=== PATIENT | female | born 1940 | race Two or more races ===

== ENCOUNTER 2025-02-19 16:30 | Emergency (ER) | payer OTHER ==
[~2025-02-19] VITALS: Ht 167.6 cm; Wt 68.0 kg
[2025-02-19] MEDS ORDERED: COZAAR50 MG PO (16:48)
[2025-02-19] MEDS ORDERED: NORVASC5 MG PO (16:48)
[2025-02-19] MEDS ORDERED: ROSUVASTATIN CA10 MG PO (16:49)
[2025-02-19] MEDS ORDERED: GLIMEPIRIDE3 MG PO (16:49)
[2025-02-19] MEDS ORDERED: TRIJARDY XR 101 EACH PO (16:51)
[2025-02-19] MEDS ORDERED: FAMOTIDINE/PF 20 MG/2 ML VIAL ONE (17:34)
[2025-02-19] MEDS ORDERED: levoFLOXacin IN DEXTROSE 5 % 500MG/100ML PIGGYBAG IV ONE ×2 (17:34→17:45)
[2025-02-19] MEDS ORDERED: FAMOtidine 10 MG/ML (4ML VIAL) IV ONE (17:45)
[2025-02-19 18:41] LABS: BASO % 0.9 % (0.1-1.2); EOS # 0.15 (0.04-0.54); EOS % 2.2 % (0.7-7.0); HEMATOCRIT 39.5 % (34.1-44.9); HEMOGLOBIN 13.2 g/dL (11.2-15.7); LYMPH # 1.28 (1.18-3.74); LYMPH % 18.9 % (19.3-53.1); MEAN CORPUSCULAR HEMOGLOBIN 29.8 pg (25.6-32.2); MONO # 0.72 (0.24-0.82); MONO % 10.6 % (4.7-12.5); NEUT # 4.52 (1.56-6.13); NEUT % 66.7 % (34.0-71.1); PLATELET COUNT 248 K/uL (163-369); RED BLOOD COUNT 4.43 M/uL (3.93-5.22); RED CELL DISTRIBUTION WIDTH 13.5 % (11.6-14.4)
[2025-02-19 18:45] LABS: ERYTHROCYTE SEDIMENTATION RATE 28 mm/hr (0-30)
[2025-02-19 19:11] LABS: D DIMER 1.12 MG/L; INR 0.94; PROTHROMBIN TIME 10.3 SECONDS (9.0-11.5)
[2025-02-19 19:17] LABS: ALBUMIN 3.6 gm/dL (3.4-5.0); ALKALINE PHOSPHATASE 92 U/L (50-136); ALT/SGPT 27 U/L (12-78); ANION GAP 9 (10.0-20.0); AST/SGOT 23 U/L (15-37); BILIRUBIN TOTAL 0.29 mg/dL (0.3-1.2); BLOOD UREA NITROGEN 21 mg/dL (7-18); BUN CREA RATIO 21 (7.0-25.0); CALCIUM 9.4 mg/dL (8.5-10.1); CARBON DIOXIDE 28 mEq/L (21-32); CHLORIDE 109 mmol/L (98-107); CREATININE SERUM 1.01 mg/dL (0.55-1.02); GFR 51.97; GLOBULINA 3.7 G/DL (2.4-3.5); GLUCOSE FASTING 206 mg/dL (65-100); OSMOLALITY SERUM 292 MOSM/KG (275-295); POTASSIUM 4.35 mEq/L (3.5-5.1); SODIUM 142 mmol/L (136-145); TOTAL PROTEIN 7.3 gm/dL (6.4-8.2)
[2025-02-19 19:18] LABS: C-REACTIVE PROTEIN < 0.29 MG/DL (0.00-0.29)
[2025-02-19] MEDS ORDERED: ELIQUIS5 MG PO (20:05)
[2025-02-19 20:36] LABS: URINE APPEARANCE Clear; URINE BILIRRUBIN Negative (NEGATIVE); URINE BLOOD Negative; URINE COLOR Yellow; URINE KETONE Negative (NEGATIVE); URINE LEUKOCYTE Negative; URINE NITRATE Positive; URINE PROTEIN Negative (NEGATIVE); URINE UROBILINOGEN 0.2 E.U./dl
[2025-02-19 20:40] LABS: URINE RBC 4.4 uL (0.0-20.8); URINE WBC 58.1 uL (0.0-23.2)
[2025-02-19 20:51] LABS: URINE BACTERIA > 9821.5 uL (0.0-1933); URINE CAST 0.44 uL (0.0-1.40); URINE GLUCOSE >=1000 MG/DL (NEGATIVE); URINE MUCUS SCANT; URINE YEAST MANY /hpf
== END 2025-02-19 22:04 | disposition home or self-care (01) ==
LOC: EDBD 17:02 → ER 17:02
PROVIDERS: General Practice
DX: I73.9 Peripheral vascular disease, unspecified (principal); R60.0 Localized edema; I10 Essential (primary) hypertension; E11.9 Type 2 diabetes mellitus without complications; Z79.84 Long term (current) use of oral hypoglycemic drugs; Z88.0 Allergy status to penicillin; Z88.8 Allergy status to other drugs, medicaments and biological substances
CPT/HCPCS: 36415; 73610; 96365; 99283; J1956; J3490